=== PATIENT | male | born 1945 | race African-American/Black ===

== ENCOUNTER 2020-11-27 21:47 | Inpatient (IN) | payer MEDICARE, OTHER ==
[~2020-11-27] VITALS: Ht 185.4 cm; Wt 75.7 kg
--- NOTE | 2020-11-27 22:28 | NUR ---
PT IS IN ROOM #2B. DR MORAN EVALUATED THE PT.
[2020-11-27 23:07] LABS: HEMATOCRIT 31.3 % (36.7-47.1); MEAN CORPUSCULAR HEMOGLOBIN 25.8 uug (23.8-33.4); MEAN CORPUSCULAR VOLUME 80.7 fL (73.0-96.2); PLATELET COUNT (AUTO) 210 K/uL (152-348)
[2020-11-27 23:13] LABS: CARBON DIOXIDE 23 mmol/L (21-32); CHLORIDE 109 mmol/L (98-107); CREATININE 1.3 mg/dL (0.6-1.3); GLUCOSE 159 mg/dL (74-106); POTASSIUM 4.6 mmol/L (3.5-5.1); UREA NITROGEN, BLOOD 30 mg/dL (7-18)
[2020-11-27 23:18] LABS: ETHANOL < 3 MG/DL (0-0)
[2020-11-27 23:24] LABS: THYROID STIMULATING HORMONE 2.279 mIU/mL (0.358-3.740)
[2020-11-27 23:29] LABS: ALANINE AMINOTRANSFERASE 24 U/L (16-63); ALKALINE PHOSPHATASE 86 U/L (50-136); ASPARTATE AMINOTRANSFERASE 24 U/L (15-37); BILIRUBIN,DIRECT 0.1 mg/dL (0.0-0.2); BILIRUBIN,TOTAL 0.4 mg/dL (0.2-1.0); CREATINE KINASE, TOTAL 343 U/L (39-308); TOTAL PROTEIN, SERUM 7.2 g/dL (6.4-8.2)
[2020-11-27 23:30] LABS: ACETAMINOPHEN < 0.0 ug/mL (10-30)
--- NOTE | 2020-11-27 23:38 | NUR ---
REPORT GIVEN TO COMMAND POST SUPERINTENDENT TI DEMPSEY.
--- NOTE | 2020-11-27 23:38 | NUR ---
Crisis parts counter representative Mi evaluated the pt.
[2020-11-27 23:42] LABS: *BILIRUBIN,URIN NEGATIVE (NEGATIVE); *BLOOD, URINE NEGATIVE (NEGATIVE); *CLARITY,URINE CLEAR (CLEAR); *COLOR,URINE YELLOW (YELLOW); *KETONES,URINE NEGATIVE (NEGATIVE); *UROBILINOGEN,URINE 0.2 E.U./dl (NORMAL); LEUKOCYTE ESTERASE ,URINE NEGATIVE (NEGATIVE); NITRITE, URINE NEGATIVE (NEGATIVE); UGLUCOSE NEGATIVE (NEGATIVE)
[2020-11-27 23:53] LABS: BACTERIA,URINE NONE SEEN /HPF (NONE SEEN); RBC,URINE 0-3 /HPF (0-3); SQUAMOUS EPITHELIAL CELL,UR NONE SEEN /HPF (NONE SEEN); WBC,URINE 0-3 /HPF (0-3)
[2020-11-27 23:57] LABS: *AMPHETAMINE, URINE NEGATIVE (NEGATIVE); *CANNABINOID, URINE NEGATIVE (NEGATIVE); *COCCAINE, URINE NEGATIVE (NEGATIVE); *OPIATE, URINE NEGATIVE (NEGATIVE); *PHENCYCLIDINE SCREEN,URINE NEGATIVE (NEGATIVE)
[2020-11-28] MEDS ORDERED: THIA100T13 PO (00:52)
[2020-11-28] MEDS ORDERED: QUET50TA PO (00:52)
[2020-11-28] MEDS ORDERED: LOSA50TA3 PO (00:52)
[2020-11-28] MEDS ORDERED: MIRT-121 PO (00:52)
[2020-11-28] MEDS ORDERED: DONE10TA11 PO (00:52)
[2020-11-28] MEDS ORDERED: BISA10SU61 RC (00:52)
[2020-11-28] MEDS ORDERED: FERR325T28 PO (00:52)
[2020-11-28] MEDS ORDERED: TOPI25TA PO (00:52)
[2020-11-28] MEDS ORDERED: ASPI81TA31 PO (00:52)
[2020-11-28] MEDS ORDERED: ACET-2154 PO (00:52)
[2020-11-28] MEDS ORDERED: MAGN400O6 PO (00:52)
[2020-11-28] MEDS ORDERED: MV-M1TAB18 PO (00:52)
[2020-11-28] MEDS ORDERED: ATOR40TA PO (00:52)
[2020-11-28] MEDS ORDERED: NA P133E RC (00:52)
--- NOTE | 2020-11-28 01:00 | NUR ---
Transfered to [facility] via [facility]
[2020-11-28] MEDS ORDERED: ACETAMINOPHEN 325 MG TABLET PO PRN (03:15)
[2020-11-28] MEDS ORDERED: MAG HYDROX/AL HYDROX/SIMETH 30 ML LIQUID UDC PO PRN (03:15)
[2020-11-28] MEDS ORDERED: MAGNESIUM HYDROXIDE 30 ML LIQUID UDC PO PRN (03:15)
[2020-11-28 06:05] VITALS: BP 117/59
[2020-11-28 07:30] VITALS: BP 125/64
--- NOTE | 2020-11-28 07:30 | NUR ---
Received report from TI Palomares. All questions, comments, and concerns were addressed. Received patient resting quietly in his assigned bed. Bed is in low and locked position with bed alarm on.
--- NOTE | 2020-11-28 07:31 | NUR ---
Admit Note Patient is a 75 yr old male admitted on a 5150 for DTO and GD. Patient arrived via gurney with ER staff. Upon arrival pt was confused, disorganized and unable to complete admission interview. Vital signs stable, no belongings, patient rights handbook provided. Plan of care in place. Monitor for safety.
--- NOTE | 2020-11-28 08:35 | NUR ---
FIREARMS REPORT: Form Block Maker completed and submitted a [employer] firearms report for 5150 grave disability certification. A copy of report has been placed in patient chart.
--- NOTE | 2020-11-28 09:52 | NUR ---
SW Family Contact: This SW contacted patient's daughter Kendy ([phone]) to discuss treatment and discharge plan, however, she was unavailable at this time.
--- NOTE | 2020-11-28 09:52 | NUR ---
SW Initial Discharge Plan: Patient is from [facility] [address] [place] [address] ([phone]). This SW contacted admin Misa to confirm if pt is welcomed back and Misa will notify this SW. This SW contacted patient's daughter Kendy ([phone]) to discuss treatment and discharge plan, however, she was unavailable at this time. This SW will coordinate proper discharge with treatment team.
--- NOTE | 2020-11-28 09:53 | NUR ---
Treatment Plan: Pt unable to sign due to pt being very confused.
--- NOTE | 2020-11-28 10:17 | NUR ---
VALE Family Contact: This SW spoke with patient's daughter Kendy ([phone]) who stated that she would want to speak to Dr. Gomez to discuss patient's treatment and discharge plan. SW will notify Dr. Gomez. Kendy stated that she is in [facility] and has been traveling. She reported that she is a doctor and is aware of the process. Kendy expressed that she is the DPOA but stated she is unable to send the documents due to traveling purpose. Kendy expressed that patient's behavior at [facility] was unexpected and she reported that she would want pt to return back. Kendy did also report she was unhappy with [facility] but would want pt back. SW will work with family and pt to help with proper discharge/treatment plan.
--- NOTE | 2020-11-28 11:03 | NUR ---
SW SNF Contact: This SW spoke with Mango tabares who stated pt is welcomed back upon dc back to [facility].
--- NOTE | 2020-11-28 13:23 | NUR ---
VALE Individual Therapy: pest control worker met with patient for brief counseling and assessed for patient's presenting problem disorganized thought content. Pt appeared to be disorganized and disoriented. Pt unable to have a proper conversation due to dementia. Pt would respond "I don't know or I am unsure". SW unable to conduct therapy at this time.
[2020-11-28 16:00] VITALS: BP 113/59
[2020-11-28] MEDS: DIVALPROEX SPRINKLE 125 MG CAP.SPRINK PO SCH (16:24)
[2020-11-28] MEDS: NICOTINE 14 MG/24HR PATCH TD SCH (16:26)
[2020-11-28] MEDS ORDERED: FLEET ENEMA 133 ML BOTTLE RC PRN (18:45)
[2020-11-28] MEDS ORDERED: BISACODYL 10 MG SUPP.RECT RC PRN (18:45)
[2020-11-28] MEDS: QUETIAPINE FUMARATE 25 MG TABLET PO SCH (20:08)
[2020-11-28] MEDS: ATORVASTATIN 40 MG TABLET PO SCH (20:09)
[2020-11-28 20:17] VITALS: BP 138/69
--- NOTE | 2020-11-29 05:40 | NUR ---
Patient med compliant, interacts with staff and certain peers. Patient will remain in a psych facility for further evaluation and treatment.
[2020-11-29 07:09] LABS: HEMATOCRIT 34.3 % (36.7-47.1); MEAN CORPUSCULAR HEMOGLOBIN 25.8 uug (23.8-33.4); MEAN CORPUSCULAR VOLUME 82.5 fL (73.0-96.2); PLATELET COUNT (AUTO) 202 K/uL (152-348)
[2020-11-29 07:23] LABS: MAGNESIUM 2.2 mg/dL (1.8-2.4); PHOSPHOROUS 3.6 mg/dL (2.5-4.9)
[2020-11-29 07:24] LABS: BILIRUBIN,TOTAL 0.5 mg/dL (0.2-1.0); POTASSIUM 4.3 mmol/L (3.5-5.1); TOTAL PROTEIN, SERUM 7.4 g/dL (6.4-8.2)
[2020-11-29 07:30] VITALS: BP_SYST 104; BP_SYST 131; BP_DIAS 50; BP_DIAS 79
[2020-11-29] MEDS: LOSARTAN POTASSIUM 50 MG TABLET PO SCH (09:00)
[2020-11-29] MEDS: DONEPEZIL 10 MG TABLET PO SCH (09:20)
[2020-11-29] MEDS: DIVALPROEX SPRINKLE 125 MG CAP.SPRINK PO SCH ×2 (09:20→16:58)
[2020-11-29] MEDS: ASPIRIN 81 MG TAB.CHEW PO SCH (09:20)
[2020-11-29] MEDS: FERROUS SULFATE 325 MG TABEC PO SCH (09:20)
[2020-11-29] MEDS: CHOLECALCIFEROL 1,000 UNIT TABLET PO SCH (09:20)
[2020-11-29] MEDS: THIAMINE HCL 100 MG TABLET PO SCH (09:20)
[2020-11-29] MEDS: NICOTINE 14 MG/24HR PATCH TD SCH (09:21)
[2020-11-29 15:50] VITALS: BP 106/69
[2020-11-29 20:00] VITALS: BP 100/67
--- NOTE | 2020-11-29 20:30 | NUR ---
RECEIVED PATIENT IN THE DAY ROOM WATCHING TV. HE IS NOTED A/O X1. CALM AND PLEASANT UPON APPROACHED. HE IS NOTED WITH IMPAIRED INSIGHT AND JUDGMENT TO THE REASON FOR HIS ADMISSION TO [facility]. UPON INTERVIEW, HE STATED, "I DON'T KNOW WHY I AM HERE". PATIENT IS UNABLE TO HAVE A MEANINGFUL CONVERSATION WITH THIS FILLING MACHINE SET UP MECHANIC. MOOD IS GUARDED, AFFECT IS BLUNTED, SPEECH IS TANGENTAL. HIS V/S ARE STABLE AT THIS TIME. HE WAS GIVEN PO FLUIDS AND SNACKS. SAFETY AND FALL PRECAUTION ARE IN PLACE. WILL CONTINUE TO MONITOR.
[2020-11-29] MEDS: QUETIAPINE FUMARATE 25 MG TABLET PO SCH (21:01)
[2020-11-29] MEDS: ATORVASTATIN 40 MG TABLET PO SCH (21:01)
[2020-11-30 07:30] VITALS: BP 127/62
[2020-11-30] MEDS: DIVALPROEX SPRINKLE 125 MG CAP.SPRINK PO SCH ×2 (08:28→16:58)
[2020-11-30] MEDS: CHOLECALCIFEROL 1,000 UNIT TABLET PO SCH (08:28)
[2020-11-30] MEDS: ASPIRIN 81 MG TAB.CHEW PO SCH (08:28)
[2020-11-30] MEDS: FERROUS SULFATE 325 MG TABEC PO SCH (08:28)
[2020-11-30] MEDS: DONEPEZIL 10 MG TABLET PO SCH (08:28)
[2020-11-30] MEDS: THIAMINE HCL 100 MG TABLET PO SCH (08:31)
[2020-11-30] MEDS: LOSARTAN POTASSIUM 50 MG TABLET PO SCH (08:31)
[2020-11-30] MEDS: NICOTINE 14 MG/24HR PATCH TD SCH (08:37)
--- NOTE | 2020-11-30 14:09 | NUR ---
Patient endorse to TI Jordan for continuity of care.
[2020-11-30 15:07] LABS: A/G RATIO 1.2 (0.7-1.7); ALBUMIN 3.7 g/dL (2.9-4.4); ALPHA-1-GLOBULIN 0.2 g/dL (0.0-0.4); ALPHA-2-GLOBULIN 0.7 g/dL (0.4-1.0); BETA GLOBULIN 1.1 g/dL (0.7-1.3); GAMMA GLOBULIN 1.1 g/dL (0.4-1.8); GLOBULIN, TOTAL 3.1 g/dL (2.2-3.9); M-SPIKE Not Observed g/dL (Not Observed)
[2020-11-30 16:00] VITALS: BP 122/60
[2020-11-30] MEDS: METFORMIN HCL 500 MG TABLET PO SCH (17:01)
[2020-11-30 20:01] VITALS: BP 154/63
[2020-11-30] MEDS: ATORVASTATIN 40 MG TABLET PO SCH (21:03)
[2020-11-30] MEDS: QUETIAPINE FUMARATE 25 MG TABLET PO SCH (21:03)
[2020-12-01 07:49] VITALS: BP 119/51
[2020-12-01] MEDS: DONEPEZIL 10 MG TABLET PO SCH (08:08)
[2020-12-01] MEDS: CHOLECALCIFEROL 1,000 UNIT TABLET PO SCH (08:08)
[2020-12-01] MEDS: DIVALPROEX SPRINKLE 125 MG CAP.SPRINK PO SCH ×2 (08:08→16:02)
[2020-12-01] MEDS: THIAMINE HCL 100 MG TABLET PO SCH (08:08)
[2020-12-01] MEDS: LOSARTAN POTASSIUM 50 MG TABLET PO SCH (08:08)
[2020-12-01] MEDS: METFORMIN HCL 500 MG TABLET PO SCH ×2 (08:08→17:17)
[2020-12-01] MEDS: FERROUS SULFATE 325 MG TABEC PO SCH (08:08)
[2020-12-01] MEDS: NICOTINE 14 MG/24HR PATCH TD SCH (08:08)
[2020-12-01] MEDS: ASPIRIN 81 MG TAB.CHEW PO SCH (08:08)
[2020-12-01 16:59] VITALS: BP 125/59
[2020-12-01 20:00] VITALS: BP 124/58
[2020-12-01] MEDS: ATORVASTATIN 40 MG TABLET PO SCH (20:20)
[2020-12-01] MEDS: LORAZEPAM 0.5 MG TABLET PO PRN (20:20)
[2020-12-01] MEDS: QUETIAPINE FUMARATE 25 MG TABLET PO SCH (20:20)
[2020-12-02 08:15] VITALS: BP 101/52
[2020-12-02] MEDS: DONEPEZIL 10 MG TABLET PO SCH (08:15)
[2020-12-02] MEDS: DIVALPROEX SPRINKLE 125 MG CAP.SPRINK PO SCH ×3 (08:15→20:39)
[2020-12-02] MEDS: ASPIRIN 81 MG TAB.CHEW PO SCH (08:15)
[2020-12-02] MEDS: FERROUS SULFATE 325 MG TABEC PO SCH (08:15)
[2020-12-02] MEDS: METFORMIN HCL 500 MG TABLET PO SCH ×2 (08:15→16:15)
[2020-12-02] MEDS: CHOLECALCIFEROL 1,000 UNIT TABLET PO SCH (08:15)
[2020-12-02] MEDS: THIAMINE HCL 100 MG TABLET PO SCH (08:15)
[2020-12-02] MEDS: LOSARTAN POTASSIUM 50 MG TABLET PO SCH (08:16)
[2020-12-02] MEDS: NICOTINE 14 MG/24HR PATCH TD SCH (08:17)
[2020-12-02] MEDS: LORAZEPAM 0.5 MG TABLET PO PRN (15:18)
[2020-12-02 16:19] VITALS: BP 132/68
[2020-12-02] MEDS ORDERED: HALOPERIDOL LACTATE 5 MG/1 ML VIAL IM STA (19:42)
[2020-12-02] MEDS ORDERED: LORAZEPAM 2 MG/1 ML VIAL IM STA (19:42)
[2020-12-02 19:50] VITALS: BP 143/71
[2020-12-02] MEDS: QUETIAPINE FUMARATE 25 MG TABLET PO SCH (20:39)
[2020-12-02] MEDS: ATORVASTATIN 40 MG TABLET PO SCH (20:39)
--- NOTE | 2020-12-02 21:00 | NUR ---
Received patient at the start of the shift sitting in another patients room. When the patient was asked to leave he became argumentative ,but did in fact leave. A short time after ,this patient was in front of the nurses station, announcing " I need to get out of here. I have stuff I gotta do !" This insurance writer made many attempts to explain the situation and provide reorientation .This had little effect and the patients anger continued to escalate. The patient began to verbally threaten this insurance writer, calling the insurance writer names and posturing in front of the station. Despite using a calm voice, this Patient would only yell in response. The consulting project director Psychiatrist ,Dr. Connors, happened to be at the station and was witness to this behavior. The order was given for an IM injection . The patients behavior continued to elevate at a rapid rate so for the safety of the staff , and the other patients, this was deemed necessary. The staff explained the procedure. The patient was hostel and defiant at that time. Security was called and assisted the staff in calming the patient and making sure nobody was hurt. The patient complied and the the total time hands on this patient was less than 1 minute. After the injection the patient went into the day room. Soon after ,a snack was provided and the patient appeared much calmer. The VS were monitored and stable throughout the observation period. The patient eventually was able to make a contract for maintaining appropriate behavior . This insurance writer is continuing to monitor the patient for further behavior escalation and frequently rounding to ensure a safe environment.
--- NOTE | 2020-12-03 06:40 | NUR ---
Patient slept 7 hours . Up early this am. The patient had urinated himself before he could make it to the bathroom. Provided am care and the patient was calm and cooperative at this time. Continuing to monitor for safety.
[2020-12-03 07:30] VITALS: BP 102/46
[2020-12-03] MEDS: CHOLECALCIFEROL 1,000 UNIT TABLET PO SCH (08:11)
[2020-12-03] MEDS: DIVALPROEX SPRINKLE 125 MG CAP.SPRINK PO SCH ×2 (08:11→20:11)
[2020-12-03] MEDS: NICOTINE 14 MG/24HR PATCH TD SCH (08:11)
[2020-12-03] MEDS: ASPIRIN 81 MG TAB.CHEW PO SCH (08:11)
[2020-12-03] MEDS: FERROUS SULFATE 325 MG TABEC PO SCH (08:12)
[2020-12-03] MEDS: QUETIAPINE FUMARATE 25 MG TABLET PO SCH ×2 (08:12→20:10)
[2020-12-03] MEDS: DONEPEZIL 10 MG TABLET PO SCH (08:12)
[2020-12-03] MEDS: METFORMIN HCL 500 MG TABLET PO SCH ×2 (08:12→16:41)
[2020-12-03] MEDS: LOSARTAN POTASSIUM 50 MG TABLET PO SCH (08:12)
[2020-12-03] MEDS: THIAMINE HCL 100 MG TABLET PO SCH (08:14)
--- NOTE | 2020-12-03 12:16 | NUR ---
VALE PC Hearing: Patient had 5250 probable cause hearing today and it was upheld for grave disability.
[2020-12-03 15:21] VITALS: BP 140/70
[2020-12-03] MEDS: LORAZEPAM 0.5 MG TABLET PO PRN (17:09)
[2020-12-03 20:02] VITALS: BP 100/58
[2020-12-03] MEDS: ATORVASTATIN 40 MG TABLET PO SCH (20:10)
[2020-12-04 07:30] VITALS: BP 118/40
[2020-12-04] MEDS: THIAMINE HCL 100 MG TABLET PO SCH (08:11)
[2020-12-04] MEDS: METFORMIN HCL 500 MG TABLET PO SCH ×2 (08:12→16:16)
[2020-12-04] MEDS: QUETIAPINE FUMARATE 25 MG TABLET PO SCH ×2 (08:12→20:00)
[2020-12-04] MEDS: CHOLECALCIFEROL 1,000 UNIT TABLET PO SCH (08:12)
[2020-12-04] MEDS: DONEPEZIL 10 MG TABLET PO SCH (08:12)
[2020-12-04] MEDS: ASPIRIN 81 MG TAB.CHEW PO SCH (08:12)
[2020-12-04] MEDS: DIVALPROEX SPRINKLE 125 MG CAP.SPRINK PO SCH ×2 (08:12→20:00)
[2020-12-04] MEDS: FERROUS SULFATE 325 MG TABEC PO SCH (08:12)
[2020-12-04] MEDS: NICOTINE 14 MG/24HR PATCH TD SCH (08:13)
[2020-12-04] MEDS: LOSARTAN POTASSIUM 50 MG TABLET PO SCH (08:13)
[2020-12-04 15:29] VITALS: BP 127/60
[2020-12-04] MEDS: LORAZEPAM 0.5 MG TABLET PO PRN (16:16)
[2020-12-04] MEDS: ATORVASTATIN 40 MG TABLET PO SCH (20:00)
[2020-12-04 20:04] VITALS: BP 148/70
--- NOTE | 2020-12-04 22:24 | NUR ---
PATIENT ALERT/ORIENTED X 1-2 WITH CONFUSION NOTED. PATIENT REQUIRES CONSTANT REDIRECTION. THE PATIENT CONTINUES TO GO IN AND OUT OF OTHER PATIENT'S ROOM NEED REDIRECTION. EASILY IRRITABLE AND EASILY ANGRY. THE PATIENT IS COMPLAINT WITH MEDICATION. SAFE ENVIRONMENT PROVIDED, FREQUENT ROUNDING, AND CLUTTER FREE ENVIRONMENT. BED IN LOWEST POSITION, BED LOCKED, AND ALARM ON WHILE IN BED. THE PATIENT IN NO APPARENT DISTRESS.
[2020-12-05 07:09] LABS: HEMATOCRIT 28.9 % (36.7-47.1); MEAN CORPUSCULAR VOLUME 80.1 fL (73.0-96.2); PLATELET COUNT (AUTO) 207 K/uL (152-348)
[2020-12-05 07:14] LABS: CREATININE 1.1 mg/dL (0.6-1.3); POTASSIUM 4.7 mmol/L (3.5-5.1)
[2020-12-05 07:30] VITALS: BP 123/55
[2020-12-05] MEDS: METFORMIN HCL 500 MG TABLET PO SCH ×3 (08:00→16:40)
[2020-12-05] MEDS: ASPIRIN 81 MG TAB.CHEW PO SCH ×2 (09:00→09:02)
[2020-12-05] MEDS: THIAMINE HCL 100 MG TABLET PO SCH ×2 (09:00→09:02)
[2020-12-05] MEDS: DIVALPROEX SPRINKLE 125 MG CAP.SPRINK PO SCH ×3 (09:00→21:14)
[2020-12-05] MEDS: DONEPEZIL 10 MG TABLET PO SCH ×2 (09:00→09:02)
[2020-12-05] MEDS: FERROUS SULFATE 325 MG TABEC PO SCH ×2 (09:00→09:02)
[2020-12-05] MEDS: LOSARTAN POTASSIUM 50 MG TABLET PO SCH ×2 (09:00→09:02)
--- NOTE | 2020-12-05 09:00 | NUR ---
Patient refused some of his morning medication. Redirected and reinforce teaching, offered again but still refused. Does not want to take the rest of the pills. Will continue to monitor.
[2020-12-05] MEDS: CHOLECALCIFEROL 1,000 UNIT TABLET PO SCH (09:01)
[2020-12-05] MEDS: NICOTINE 14 MG/24HR PATCH TD SCH (09:02)
[2020-12-05] MEDS: QUETIAPINE FUMARATE 25 MG TABLET PO SCH ×2 (09:02→21:15)
[2020-12-05 16:16] VITALS: BP 134/69
--- NOTE | 2020-12-05 18:38 | NUR ---
Received patient in bed, denies pain. Needs redirection. Afternoon medication was given without refusal. He wanders in the corridor and rooms. Needs to be oriented and reminded. Safety precaution maintained. Will continue to monitor.
[2020-12-05] MEDS: ATORVASTATIN 40 MG TABLET PO SCH (21:15)
[2020-12-05 21:26] VITALS: BP 147/71
[2020-12-06 07:30] VITALS: BP 115/62
[2020-12-06] MEDS: FERROUS SULFATE 325 MG TABEC PO SCH (10:15)
[2020-12-06] MEDS: ASPIRIN 81 MG TAB.CHEW PO SCH (10:15)
[2020-12-06] MEDS: DONEPEZIL 10 MG TABLET PO SCH (10:15)
[2020-12-06] MEDS: LOSARTAN POTASSIUM 50 MG TABLET PO SCH (10:16)
[2020-12-06] MEDS: THIAMINE HCL 100 MG TABLET PO SCH (10:17)
[2020-12-06] MEDS: QUETIAPINE FUMARATE 25 MG TABLET PO SCH ×2 (10:18→20:19)
[2020-12-06] MEDS: CHOLECALCIFEROL 1,000 UNIT TABLET PO SCH (10:18)
[2020-12-06] MEDS: NICOTINE 14 MG/24HR PATCH TD SCH (10:18)
[2020-12-06] MEDS: DIVALPROEX SPRINKLE 125 MG CAP.SPRINK PO SCH ×3 (10:20→17:20)
[2020-12-06] MEDS: METFORMIN HCL 500 MG TABLET PO SCH ×2 (10:21→17:20)
[2020-12-06 16:00] VITALS: BP 127/61
[2020-12-06 20:00] VITALS: BP 103/64
[2020-12-06] MEDS: ATORVASTATIN 40 MG TABLET PO SCH (20:19)
--- NOTE | 2020-12-06 20:20 | NUR ---
GPS: Pt.is confused,disoriented. Wanders around the unit. Med.compliant. Re-directed prn. No increased agitation noted. Safe environment provided. Will continue to re-direct prn.
[2020-12-06] MEDS: LORAZEPAM 0.5 MG TABLET PO PRN (23:25)
--- NOTE | 2020-12-06 23:31 | NUR ---
GPS: Pt.woke up at this time while roommate was being wheeled into his room. Pt.is confused,disoriented and trying to close door despite staff telling him not to for safety reasons. Pt.refusing to listen to staff. Arguing and starting to get agitated and continuing to close his door. Unable to be re-directed. Ativan 0.5mg offered strongly by staff but refusing to take medication. Pt.sitting on his bed at this time quietly. Monitored for further escalation of behavior.
--- NOTE | 2020-12-07 06:53 | NUR ---
GPS: Remains asleep at this time. Safe environment provided. Will continue to re-direct prn.
[2020-12-07] MEDS: METFORMIN HCL 500 MG TABLET PO SCH ×3 (08:00→17:35)
[2020-12-07] MEDS: ASPIRIN 81 MG TAB.CHEW PO SCH ×2 (08:27→09:00)
[2020-12-07] MEDS: CHOLECALCIFEROL 1,000 UNIT TABLET PO SCH ×2 (08:27→09:00)
[2020-12-07] MEDS: NICOTINE 14 MG/24HR PATCH TD SCH ×2 (08:28→09:00)
[2020-12-07] MEDS: DIVALPROEX SPRINKLE 125 MG CAP.SPRINK PO SCH ×4 (08:28→17:00)
[2020-12-07] MEDS: DONEPEZIL 10 MG TABLET PO SCH ×2 (08:28→09:00)
[2020-12-07] MEDS: THIAMINE HCL 100 MG TABLET PO SCH ×2 (08:28→09:00)
[2020-12-07] MEDS: FERROUS SULFATE 325 MG TABEC PO SCH ×2 (08:28→09:00)
[2020-12-07] MEDS: QUETIAPINE FUMARATE 25 MG TABLET PO SCH ×3 (08:28→19:49)
[2020-12-07] MEDS: LOSARTAN POTASSIUM 50 MG TABLET PO SCH (08:30)
--- NOTE | 2020-12-07 09:04 | NUR ---
CHILD WELFARE DIRECTOR WENT TO PT'S ROOM TO ADMINISTER MEDICATIONS, PT APPEARED AGITATED AND STATED TO "COME BACK AFTER BREAKFAST, I'LL TAKE YOUR DAMN MEDS." AFTER PT WAS DONE WITH BREAKFAST, NURSE ONCE AGAIN WENT TO PT'S ROOM TO OFFER MEDICATIONS, AND PT BECAME QUITE HOSTILE, YELLING/SCREAMING PROFANITIES, THREATENING. STATES "GET THE FUCK OUT OF HERE WITH THOSE. FUCK OFF AND GET OUT BEFORE I DO SOMETHING." UNABLE TO EXPLAIN WHY HE IS SO AGITATED OR WHY HE IS REFUSING MEDICATIONS AT THIS TIME.
--- NOTE | 2020-12-07 10:01 | NUR ---
SW Family Contact: This SW spoke with patient's daughter Kendy ([phone]) and discussed discharge plan for next week on Thursday. Kendy is agreeable with discharge plan.
[2020-12-07 11:49] LABS: CREATININE 1.1 mg/dL (0.6-1.3); POTASSIUM 4.5 mmol/L (3.5-5.1)
[2020-12-07] MEDS ORDERED: OLANZAPINE 10 MG VIAL IM ONE (12:15)
[2020-12-07] MEDS: LORAZEPAM 0.5 MG TABLET PO PRN (19:48)
[2020-12-07] MEDS: ATORVASTATIN 40 MG TABLET PO SCH (19:48)
[2020-12-07 20:08] VITALS: BP 131/50
[2020-12-07] MEDS: ZOLPIDEM 5 MG TABLET PO PRN (22:55)
--- NOTE | 2020-12-08 05:20 | NUR ---
Received patient in bed, awake and confused. This financial underwriter assisted patient into the day room to watch TV. Patient ate snack and took medications with no difficulty or push back. The patient took a shower before going to bed. Sleep hours were 6.45. This patient is up early this am wondering in the loera, but is easily redirected back to his room. Patient also allowed VS to be taken last night. Continuing to monitor the patient for safety , compliance and behavior escalation.
[2020-12-08 07:33] VITALS: BP 111/56
[2020-12-08] MEDS: ASPIRIN 81 MG TAB.CHEW PO SCH (08:13)
[2020-12-08] MEDS: LOSARTAN POTASSIUM 50 MG TABLET PO SCH (08:13)
[2020-12-08] MEDS: NICOTINE 14 MG/24HR PATCH TD SCH (08:13)
[2020-12-08] MEDS: DONEPEZIL 10 MG TABLET PO SCH (08:14)
[2020-12-08] MEDS: CHOLECALCIFEROL 1,000 UNIT TABLET PO SCH (08:14)
[2020-12-08] MEDS: QUETIAPINE FUMARATE 25 MG TABLET PO SCH ×2 (08:14→20:31)
[2020-12-08] MEDS: THIAMINE HCL 100 MG TABLET PO SCH (08:15)
[2020-12-08] MEDS: METFORMIN HCL 500 MG TABLET PO SCH ×2 (08:15→17:38)
[2020-12-08] MEDS: DIVALPROEX SPRINKLE 125 MG CAP.SPRINK PO SCH ×3 (08:15→17:38)
[2020-12-08] MEDS: FERROUS SULFATE 325 MG TABEC PO SCH (08:15)
[2020-12-08] MEDS: LORAZEPAM 0.5 MG TABLET PO PRN (14:07)
[2020-12-08 16:23] VITALS: BP 141/60
[2020-12-08 20:18] VITALS: BP 129/64
[2020-12-08] MEDS: ATORVASTATIN 40 MG TABLET PO SCH (20:31)
[2020-12-09] MEDS: LORAZEPAM 0.5 MG TABLET PO PRN ×3 (00:38→08:35)
[2020-12-09] MEDS: METFORMIN HCL 500 MG TABLET PO SCH ×2 (08:00→17:18)
[2020-12-09] MEDS: NICOTINE 14 MG/24HR PATCH TD SCH (08:34)
[2020-12-09] MEDS: DIVALPROEX SPRINKLE 125 MG CAP.SPRINK PO SCH ×3 (08:35→17:00)
[2020-12-09] MEDS: QUETIAPINE FUMARATE 25 MG TABLET PO SCH ×2 (08:35→20:37)
[2020-12-09] MEDS: CHOLECALCIFEROL 1,000 UNIT TABLET PO SCH (08:35)
[2020-12-09] MEDS: DONEPEZIL 10 MG TABLET PO SCH (08:35)
[2020-12-09] MEDS: ASPIRIN 81 MG TAB.CHEW PO SCH (08:35)
[2020-12-09] MEDS: THIAMINE HCL 100 MG TABLET PO SCH (08:35)
[2020-12-09] MEDS: LOSARTAN POTASSIUM 50 MG TABLET PO SCH (08:35)
[2020-12-09] MEDS: FERROUS SULFATE 325 MG TABEC PO SCH (08:44)
[2020-12-09 09:12] LABS: HEMATOCRIT 31.6 % (36.7-47.1); MEAN CORPUSCULAR VOLUME 81.4 fL (73.0-96.2); PLATELET COUNT (AUTO) 199 K/uL (152-348)
[2020-12-09 09:19] VITALS: BP 111/44
[2020-12-09 09:33] LABS: BILIRUBIN,TOTAL 0.4 mg/dL (0.2-1.0); CREATININE 1.2 mg/dL (0.6-1.3); POTASSIUM 4.5 mmol/L (3.5-5.1)
[2020-12-09 16:13] VITALS: BP 158/68
[2020-12-09 20:19] VITALS: BP 142/73
[2020-12-09] MEDS: ATORVASTATIN 40 MG TABLET PO SCH (20:36)
[2020-12-09] MEDS: ZOLPIDEM 5 MG TABLET PO PRN (21:42)
[2020-12-10 07:00] VITALS: BP 140/50
[2020-12-10] MEDS: NICOTINE 14 MG/24HR PATCH TD SCH (08:16)
[2020-12-10] MEDS: FERROUS SULFATE 325 MG TABEC PO SCH (08:18)
[2020-12-10] MEDS: DONEPEZIL 10 MG TABLET PO SCH (08:18)
[2020-12-10] MEDS: THIAMINE HCL 100 MG TABLET PO SCH (08:18)
[2020-12-10] MEDS: DIVALPROEX SPRINKLE 125 MG CAP.SPRINK PO SCH ×3 (08:18→16:58)
[2020-12-10] MEDS: CHOLECALCIFEROL 1,000 UNIT TABLET PO SCH (08:18)
[2020-12-10] MEDS: METFORMIN HCL 500 MG TABLET PO SCH ×2 (08:18→16:58)
[2020-12-10] MEDS: ASPIRIN 81 MG TAB.CHEW PO SCH (08:18)
[2020-12-10] MEDS: QUETIAPINE FUMARATE 25 MG TABLET PO SCH ×2 (08:19→20:10)
[2020-12-10] MEDS: LOSARTAN POTASSIUM 50 MG TABLET PO SCH (08:19)
[2020-12-10 09:43] LABS: CREATININE 1.1 mg/dL (0.6-1.3); POTASSIUM 4.6 mmol/L (3.5-5.1)
[2020-12-10] MEDS: LORAZEPAM 0.5 MG TABLET PO PRN ×2 (12:22→17:11)
[2020-12-10 15:32] VITALS: BP 132/50
[2020-12-10 19:58] VITALS: BP 136/52
[2020-12-10] MEDS: ATORVASTATIN 40 MG TABLET PO SCH (20:10)
[2020-12-10] MEDS: ZOLPIDEM 5 MG TABLET PO PRN (21:33)
[2020-12-11 07:30] VITALS: BP 124/67
[2020-12-11] MEDS: NICOTINE 14 MG/24HR PATCH TD SCH (08:17)
[2020-12-11] MEDS: DIVALPROEX SPRINKLE 125 MG CAP.SPRINK PO SCH ×2 (08:18→12:21)
[2020-12-11] MEDS: METFORMIN HCL 500 MG TABLET PO SCH (08:18)
[2020-12-11] MEDS: DONEPEZIL 10 MG TABLET PO SCH (08:18)
[2020-12-11] MEDS: ASPIRIN 81 MG TAB.CHEW PO SCH (08:18)
[2020-12-11] MEDS: LOSARTAN POTASSIUM 50 MG TABLET PO SCH (08:20)
[2020-12-11] MEDS: CHOLECALCIFEROL 1,000 UNIT TABLET PO SCH (08:21)
[2020-12-11] MEDS: FERROUS SULFATE 325 MG TABEC PO SCH (08:21)
[2020-12-11] MEDS: THIAMINE HCL 100 MG TABLET PO SCH (08:21)
[2020-12-11] MEDS: QUETIAPINE FUMARATE 25 MG TABLET PO SCH (08:21)
--- NOTE | 2020-12-11 08:26 | NUR ---
Discharge Note: [facility] [address] [place] [address] ([phone]). Patient will be provided ambulance transportation at 1AM. Spoke with Misa, patient financial coordinator ([phone]) at the facility who stated they are ready to accept the patient today. Patient is alert and oriented x1, and is not able to plan for self-care at this time, but is willing to accept care provided for his at the facility. Patient denies any suicidal or homicidal ideation. Patient is aware and agreeable with discharge plans. Patients daughter Kendy ([phone]) is aware and agreeable. Patient will continue to follow-up with her (Psychiatrist) Dr. Berman and (Deflector Operator) Dr. Morse at [facility]. Patient presents with euthymic mood and congruent affect.
--- NOTE | 2020-12-11 11:32 | NUR ---
Patient will be discharged today to [facility] VIA ambulance transportation at 1AM. report given to Katrina LUKE ,Patient denies any suicidal or homicidal ideation. Patient is aware and agreeable with discharge plans. Patients daughter Kendy is aware and agreeable.all personal belonging returned to patient. Patient will continue to follow-up with her (Psychiatrist) Dr. Berman and (Painter Structural Steel) Dr. Morse at [facility]. Patient presents with euthymic mood and congruent affect.
[2020-12-11 15:08] VITALS: BP 122/48
== END 2020-12-11 15:45 | DRG 885 ==
LOC: ER 21:50 → GPS 23:55
PROVIDERS: ADMIT Psychiatry & Neurology Psychiatry; ATTEND Nurse Practitioner Family
DX: F29 Unspecified psychosis not due to a substance or known physiological condition (principal); N17.9 Acute kidney failure, unspecified; N18.9 Chronic kidney disease, unspecified; E11.65 Type 2 diabetes mellitus with hyperglycemia; F03.91 Unspecified dementia, unspecified severity, with behavioral disturbance; E78.5 Hyperlipidemia, unspecified; E86.1 Hypovolemia; Z86.73 Personal history of transient ischemic attack (TIA), and cerebral infarction without residual deficits; J44.9 Chronic obstructive pulmonary disease, unspecified; Z20.822 Contact with and (suspected) exposure to COVID-19; Z73.6 Limitation of activities due to disability; I12.9 Hypertensive chronic kidney disease with stage 1 through stage 4 chronic kidney disease, or unspecified chronic kidney disease; F25.9 Schizoaffective disorder, unspecified; D50.9 Iron deficiency anemia, unspecified; F31.9 Bipolar disorder, unspecified; Z79.84 Long term (current) use of oral hypoglycemic drugs; E11.22 Type 2 diabetes mellitus with diabetic chronic kidney disease
CPT/HCPCS: 36415; 80164; 83735; 83970; 84100; 84155; 84165; 84443; 85025; 97161; A4663; G0480; J1630; J2060; J2358